=== PATIENT | female | born 1945 | race Caucasian/White ===

== ENCOUNTER 2017-10-11 05:58 | Day surgery (SDC) | payer OTHER ==
[~2017-10-11] VITALS: Ht 167.6 cm; Wt 62.0 kg
[2017-10-11] VITALS (12 sets, daily range): BP systolic 112–140; BP diastolic 63–75; PULSE 58–73; RESP 16–18; TEMP 97.2–97.9; O2SAT 96–98
[2017-10-11] MEDS ORDERED: MUPIROCIN 2% OINT 1 APPLIC/GM SYR NASAL SCH (06:30)
[2017-10-11] MEDS ORDERED: NS 1000 ML IV SCH (06:30)
[2017-10-11] MEDS ORDERED: ATOR40TA16 PO (06:39)
[2017-10-11] MEDS ORDERED: ASPI-516 CHEW (06:39)
[2017-10-11] MEDS ORDERED: LEVOTAB PO (06:39)
[2017-10-11] MEDS ORDERED: CARV25TA (06:39)
[2017-10-11] MEDS ORDERED: POTA10CA PO (06:39)
[2017-10-11] MEDS ORDERED: BRIL90TA PO (06:39)
[2017-10-11] MEDS ORDERED: RANI150T PO (06:39)
[2017-10-11] MEDS ORDERED: FURO20TA PO (06:39)
[2017-10-11] MEDS ORDERED: POVIDONE IODINE 5% (ANTISEPSIS KIT) 4 APPLICATIONS EACH NARE SCH (06:45)
[2017-10-11] MEDS ORDERED: ceFAZolin 2 GM PREMIX 50 ML IV SCH (06:45)
[2017-10-11] MEDS ORDERED: CHLORHEXIDINE GLUCONATE 2 % 1 PACK (2 CLOTHS) TOPICAL PRN (06:45)
[2017-10-11] MEDS ORDERED: CHLORHEXIDINE GLUCONATE 2 % 1 PACK (2 CLOTHS) TOPICAL SCH (06:45)
[2017-10-11] MEDS ORDERED: VANCOMYCIN 1000 MG/NS 250 ML IV SCH ×2 (06:45)
[2017-10-11] MEDS ORDERED: LORazepam 1 MG TAB SL SCH (06:45)
[2017-10-11] MEDS ORDERED: POVIDONE IODINE 5% (ANTISEPSIS KIT) 4 APPLICATIONS EACH NARE PRN (06:45)
[2017-10-11] MEDS ORDERED: LACTATED RINGER'S 1000 ML IV PRN (06:45)
[2017-10-11 06:56] LABS: AUTOMATED NEUTROPHIL # 3.5 TH/MM3 (1.8-7.7); BASOPHIL # 0.1 TH/MM3 (0-0.2); BASOPHIL % 0.7 % (0.0-2.0); EOSINOPHIL # 0.4 TH/MM3 (0-0.4); HEMATOCRIT 38.5 % (35.0-46.0); HEMOGLOBIN 12.9 GM/DL (11.6-15.3); LYMPH % 35.3 % (9.0-44.0); LYMPHOCYTE # 2.5 TH/MM3 (1.0-4.8); MEAN CELL VOLUME 86.2 FL (80.0-100.0); MEAN CORPUSCULAR HEMOGLOBIN 28.8 PG (27.0-34.0); MEAN CORPUSCULAR HGB CONC 33.4 % (32.0-36.0); MEAN PLATELET VOLUME 7.4 FL (7.0-11.0); MONO % 10.3 % (0.0-8.0); MONOCYTE # 0.7 TH/MM3 (0-0.9); NEUT % 48.7 % (16.0-70.0); PLATELET COUNT 271 TH/MM3 (150-450); RED BLOOD COUNT 4.46 MIL/MM3 (4.00-5.30); RED CELL DISTRIBUTION WIDTH 16.7 % (11.6-17.2); WHITE BLOOD COUNT 7.1 TH/MM3 (4.0-11.0)
[2017-10-11 07:07] LABS: PROTHROMBIN TIME - PATIENT 10.5 SEC (9.8-11.6)
[2017-10-11 07:14] LABS: BICARBONATE 28.1 MEQ/L (21.0-32.0); CALCIUM 9.3 MG/DL (8.5-10.1); CREATININE 0.85 MG/DL (0.50-1.00)
[2017-10-11] MEDS ORDERED: HEPARIN-NS/PF FLUSH BAG 1,000 ML IV FLUSH ONE (07:23)
[2017-10-11] MEDS ORDERED: VANCOMYCIN 500 MG VIAL ONE (07:27)
[2017-10-11] MEDS ORDERED: LIDOCAINE HCL 2% 50 ML VIAL ONE (07:27)
[2017-10-11] MEDS ORDERED: LIDOCAINE HCL 1% PF 30 ML VIAL ONE (07:27)
--- NOTE | 2017-10-11 08:08 | CATHPROC ---
[facility] HIS Report Study Information Study Number Admission Scheduled Start Study Start [id number] Oct 11 2017 5:58AM 10/11/2017 Oct 11 2017 6:37AM [place] [facility] Cardiac Pacer/ICD Admit Source Facility Department Other [facility] - [employer] Physician and Clinical Staff Initial Julian Garnica Lever Operator Dayna Vuong,RT(R) TECH2 Other Anesthesia, CHILDREN LIBRARIAN Recorder Aline Parekh BSN Scrub Yesi Sanchez RCIS Equipment Time Certified Ophthalmic Medical Technician Description Size Mfg Part Number Used/Scraped [id number] 07:31 MEDLINE INDUSTRIES PACK, CCL CUSTOM * Used *[id number] 07:31 MEDLINE PACER LOREDO, LIMB * 2530 *[id number] Used [id number] 07:31 [employer] BLANKET,WARM AIR CCL * Used *[id number] 07:40 [employer] MEDICAL CATHETER, JSN, QUAD FR 5 Used *[id number] 07:40 [employer] [place] MEDICAL CATHETER, JSN, QUAD FR 5 Used *[id number] 07:40 [employer] [place] MEDICAL CATHETER, JSN, QUAD FR 5 Used *[id number] 07:58 [employer] [place] MEDICAL CATHETER, JSN, QUAD FR 5 Used *[id number] 07:40 [employer] [place] MEDICAL SHEATH, EPS, FR5 FAST CATH FR 5 Used *[id number] [id number] 07:40 [employer] [place] MEDICAL SHEATH, EPS, FR5 FAST CATH FR 5 Used *[id number] [id number] 07:40 [employer] [place] MEDICAL SHEATH, EPS, FR5 FAST CATH FR 5 Used *[id number] 168876 07:40 [facility] MEDICAL SHEATH, EPS, FR6 FAST CATH FR 6 Used *[id number] History: Risk Factors Hypertension Previous [place] Previous Heart Failure Yes Yes Yes Prior PCI Prior PCIDate Prior CABG Yes 08/10/2017 No Cerebrovascular On Dialysis Disease No Yes Labs Hgb (g/dl) Hct (%) WBC (l/cumm) Platelets (thousands) 11.60-17.00 35.00-51.00 4.00-11.00 150.00-450.00 12.9 38.5 7.1 271 Glucose (mg/dl) BUN (mg/dl) 74.00-106.00 7.00-18.00 82 27 INR (PTT:PT) 0.90-1.10 1 CPK-MB (ng/ML) 0.50-3.60 Not Drawn Medication Medication Total Dose (Bolus/Oral) Medication Total Dosage/Unit 1% XYLOCAINE 20 mL Medications (Bolus/Oral) Medication Time Given Dosage/Unit Administered By Reason 1% XYLOCAINE 10/11/2017 7:49:38 AM 20 mL Julian Moran 20 mL 1% XYLOCAINE given in lab by Julian Moran in Right Groin via Subcutaneous. Ordered by Juanito Moran. Medication (Drip) Medication Time Given Dosage/Unit Concentration/Unit Diluent (ml) Solution ANCEF 10/11/2017 7:23:43 AM 2 g 2 g ANCEF given in lab by Anesthesia, CHILDREN LIBRARIAN in Left Forearm via Peripheral IV. Ordered by Franky Moran yMelba IV Solutions 10/11/2017 7:21:36 AM 50 mL (IV) NaCl .9 Patient arrived on IV Solutions via Peripheral IV. Pump/Drip Flow using NaCl .9. Ordered by Buck Moran. VANCOMYCIN DRIP 10/11/2017 7:23:24 AM 1 g 1 g VANCOMYCIN DRIP given in lab by Anesthesia, CHILDREN LIBRARIAN in Right Antecubital via Peripheral IV. Ordered by Julian Moran. Initial Case Assessment Cardiovascular HR Rhythm NIBP Chest Pain 80 bbb 126/67 0 Edema Present Skin color Skin None Normal Warm Dry Circulatory - Right Pulses Dorsalis Pedis Femoral 2 2 Scale (0,1,2,3,4,d) Circulatory - Left Pulses Dorsalis Pedis Femoral 2 2 Scale (0,1,2,3,4,d) Neurological State Oriented to time-place- Alert Moves all extremities person Respiration - General Respiration Rate SpO2 (%) O2 (lpm) (B/min) 16 100 2 Chronological Log Time Study Chronological Log 7:10:10 Patient arrived via Bed. 7:11:07 Patient Name, D.O.B, / Armband Verified By R.N. 7:11:11 Consent signed by the physician and the patient and verified by the [employer] staff. 7:11:41 Presedation assessment performed by [employer] RN. 7:11:48 Patient has been NPO for More than 6Hrs. 7:11:53 Skin Breakdown- none per patient 7:12:04 Patient Warmer Placed on the Table. 7:12:07 Disposable Defibrillator Pads Placed On Patient. 7:12:11 Lisa Prominences Protected 7:15:20 A # 20 IV was noted in the Forearm (left). Grade = 0 7:15:37 A # 20 IV was noted in the Antecubital (right). Grade = 0 7:16:51 History and physical on the chart or being dictated. 7:21:36 Patient arrived on IV Solutions via Peripheral IV. Pump/Drip Flow using NaCl .9. Ordered by Julian Moran. 1 g VANCOMYCIN DRIP given in lab by Anesthesia, CHILDREN LIBRARIAN in Right Antecubital via Peripheral IV. Or dered by Luisa, 7:23:24 Julian. 7:23:43 2 g ANCEF given in lab by Anesthesia, CHILDREN LIBRARIAN in Left Forearm via Peripheral IV. Ordered by Julian Mcdowell. 7:24:41 Table restraints applied according to hospital policy 7:27:15 Anesthesia at bedside. Assumes care of patient. See anesthesia flowsheet for Q5min vitals 7:31:49 Bilateral groins prepped with 2% chlorhexidine, and draped after a 3 minute waiting time. Assessment: Initial Case, HR=80 BPM, Rhythm=bbb, CXBZ=318/67 mmhg, Chest Pain=0, Edema=None, Color=Normal, Skin = Warm, Dry Right Pulses: Estuardo Ped=2, Femoral=2 7:33:55 Left Pulses: Estuardo Ped=2, Femoral=2 Neurological: State=Alert, Ox3, SIMON Respiration: Resp=16 B/min, EcI9=934 %, O2=2 lpm 7:33:58 MD paged 7:45:06 MD arrived. Time Out. Correct patient, procedure, procedure equipment, site and side verified with physicia n present. Time 7:48:37 concurred by MD, individual staff and CHILDREN LIBRARIAN. Time Out #2 - Consents verified, patient in correct position, all results are labled and displa yed, safety precautions 7:48:38 taken, antibiotics administered. Time out concurred by MD, individual staff and CHILDREN LIBRARIAN in procedu re 7:48:40 Case Start 7:49:38 20 mL 1% XYLOCAINE given in lab by Julian Moran in Right Groin via Subcutaneous. Ordered b Julian Granados. 7:51:27 Vascular access was obtained in the Fem Vein (right). 7:51:32 Vascular access was obtained in the Fem Vein (right). 7:51:32 Vascular access was obtained in the Fem Vein (right). 7:51:49 A SHEATH, EPS, FR5 FAST CATH FR 5 was advanced into the Fem Vein (right) using the Percutan eous technique. 7:52:00 A SHEATH, EPS, FR5 FAST CATH FR 5 was advanced into the Fem Vein (right) using the Percutan eous technique. 7:52:03 A SHEATH, EPS, FR5 FAST CATH FR 5 was advanced into the Fem Vein (right) using the Percutan eous technique. 7:52:05 Vascular access was obtained in the Fem Vein (right). 7:52:09 A SHEATH, EPS, FR6 FAST CATH FR 6 was advanced into the Fem Vein (right) using the Percutan eous technique. 7:52:58 Reference ECG taken A CATHETER, JSN, QUAD FR 5 was advanced vis Fem Vein (right) and placed in the HRA. Placement w as visually 7:53:40 confirmed under fluoroscopy. A CATHETER, JSN, QUAD FR 5 was advanced vis Fem Vein (right) and placed in the HIS. Placement w as visually 7:55:13 confirmed under fluoroscopy. A CATHETER, JSN, QUAD FR 5 was advanced vis Fem Vein (right) and placed in the RVA. Placement w as visually 7:56:25 confirmed under fluoroscopy. A CATHETER, JSN, QUAD FR 5 was advanced vis Fem Vein (right) and placed in the CS. Placement wa s visually 7:57:30 confirmed under fluoroscopy. 7:58:14 EP study in progress 8:06:15 EP study complete 8:06:33 EP catheters removed; sheaths left in place at this time 8:07:02 EP Procedure was performed. 8:07:37 Initial procedure has been completed. Beginning additional procedure. 8:07:47 NOTE: This patient is undergoing an additional procedure while still in the Cardiac Cath La b. End Study - Contrast Media Used In Study Contrast Total Opened (mL) Total Used (mL) Total Wasted (mL) Omnipaque 0 0 0 End Study - Radiation Exposure Fluoro Time (minutes) 2.1 End Study - Patient Disposition Complications No
--- NOTE | 2017-10-11 08:57 | CATHPROC ---
[employer] HIS Report Study Information Study Number Admission Scheduled Start Study Start [id number] Oct 11 2017 5:58AM 10/11/2017 Oct 11 2017 8:09AM [place] [facility] Electrophysiology Study Admit Source Facility Department Other [facility] - Water Resource Engineering Specialist Physician and Clinical Staff Initial Julian Garnica Oyster Grower Dayna Vuong,RT(R) TECH2 Other Anesthesia, AIRLINE HOSTESS Recorder Aline Parekh ,FAUSTON Scrub Yesi Sanchez,FAROOQ Procedures Performed Procedure Lead Insertion Equipment Time Commercial Lines Account Executive Description Size Mfg Part Number Used/Scraped DERMABOND, ADHESIVE SKIN [id number] 08:10 CORDIS/PACER * Used GLUE MINI *[id number] 08:10 MEDLINE INDUSTRIES SUTURE, STRIP PLUS 1/2" * Used *[id number] 08:10 MEDLINE PACER LOREDO, LIMB * 2530 *[id number] Used [id number] 08:10 [employer] PACER PACK, PACER CUSTOM * Used *[id number] 08:22 [employer] PACER SAFE SHEATH, FR9, 13CM FR 9 [id number] Used 08:23 Needle Sponge Count 2 2 Used 08:24 Needle Sponge Count 2 22 Used 08:24 Needle Sponge Count 20 200 Used SUTURE, 0 ETHIBOND [CT1] (CX21D), 8pk SUTURE, 2-0 VICRYL [CT1] ([id number]) SUTURE, 2-0 VICRYL [CT1] (ZZV124Z) [id number] 08:10 [place] [facility] BLANKET,WARM AIR CCL * Used *[id number] [facility] PAD, ELECTROSURGICAL 08:10 * [id number] *[id number] Used SURGICAL GROUNDING ORANGE 08:41 VITATRON MEDTRONIC DEFIBRILLATOR, VISIA AF MRI VR VVEVVIR [id number] Used LEAD, SPRINT QUATTRO SECURE [id number] 08:36 VITATRON MEDTRONIC 62CM Used S 62CM *[id number] 08:[address] KARLA. / * Used *01100 Equipment Model, Serial, Lot Number and Expiration Data Description Model Number Serial Number Lot Number Expiration Date DEFIBRILLATOR, VISIA AF MRI VR [id number] 01-09-2019 LEAD, SPRINT QUATTRO SECURE S 6935m-62cm [id number] 08-02-2019 62CM History: Allergies Allergy Reaction No Known Allergies Labs Hgb (g/dl) Hct (%) WBC (l/cumm) Platelets (thousands) 11.60-17.00 35.00-51.00 4.00-11.00 150.00-450.00 12.9 38.5 7.1 271 Glucose (mg/dl) BUN (mg/dl) Creatinine (mg/dl) BUN:Creatinine (1:x) 74.00-106.00 7.00-18.00 0.50-1.30 10.00-20.00 82 27 0.8 33.8 Na (meq/l) K (meq/l) 136.00-145.00 3.50-5.10 136 3.8 INR (PTT:PT) 0.90-1.10 1 CPK-MB (ng/ML) 0.50-3.60 Not Drawn Medication Medication Total Dose (Bolus/Oral) Medication Total Dosage/Unit 2% XYLOCAINE 10 mL Medications (Bolus/Oral) Medication Time Given Dosage/Unit Administered By Reason 2% XYLOCAINE 10/11/2017 8:32:08 AM 10 mL Julian Moran 10 mL 2% XYLOCAINE given in lab by Julian Moran in Left chest via Subcutaneous. Ordered by Buck Moran. Chronological Log Time Study Chronological Log 8:10:14 NOTE: This patient is undergoing an additional procedure while still in the Cardiac Cath La b. 8:10:17 Initial procedure has been completed. Beginning additional procedure. 8:20:10 Left Upper Chest Prepped Times Two with three min dry time 8:22:25 Anesthesia remains at bedside with care of patient, see anesthesia flowsheet for Q5min lyssa ls 8:23:03 Bovie ground pad applied to: right thigh First Sponge And Instrument Count Done by Yesi Sanchez RCIS. 8:23:11 Hypo's: 2, Sponges: 20, Bovie/scratch: 2 Sutures: 10, Blades: 1, Instruments: 26, Syveck Patches: 0 8:23:46 2% CHLORHEXIDINE GLUCONATE WASH AND NASAL SWIPE DONE PRIOR TO PROCEDURE. 8:31:54 Reference ECG taken 8:32:02 Case Start 8:32:08 10 mL 2% XYLOCAINE given in lab by Julian Moran in Left chest via Subcutaneous. Ordered by Julian Moran. 8:33:35 Vascular access was obtained in the Subclav. Vein (Lft. 8:34:33 Surgical Incision Made. 8:35:03 A SAFE SHEATH, FR9, 13CM FR 9 was advanced into the Subclav. Vein (Lft using the Percutaneo us technique. 8:35:35 A pocket was created at the L Upper Chest. 8:35:51 A LEAD, SPRINT QUATTRO SECURE S 62CM 62CM was inserted and positioned in the RV. 8:38:03 Lead placement verified under fluoroscopy 8:39:26 The RV lead impedance and threshold being tested. 8:39:36 The RV lead was sutured to the fascia. 8:42:22 Pocket flushed with antibiotic solution 8:42:44 A DEFIBRILLATOR, VISIA AF MRI VR VVEVVIR was connected and placed in the pocket. 8:45:12 The pocket is being closed. Second Sponge And Instrument Count Done by Yesi Snachez RCIS. 8:45:32 Hypo's: 2, Sponges: 20, Bovie/scratch: 2 Sutures: 10, Blades: 1, Instruments: 26, Syveck Patches: 0 8:48:35 The pocket was closed. 8:48:41 Implant Procedure was performed. 8:48:45 A ICD Implant . (Single) 8:48:53 Bedside Report will be given. Final Sponge And Instrument Count Done by Yesi Sanchez RCIS. 8:49:43 Hypo's: 2, Sponges: 20, Bovie/scratch: 2 Sutures: 10, Blades: 1, Instruments: ~INSTRU~, Syveck Patches: 0 8:50:43 Case End 8:51:33 No case complications noted. 8:51:37 Cine recording checked. 8:51:50 Implantable Device card placed in patient's chart. 8:54:04 Steri-strips and a sterile dressing applied to site. 8:59:10 A sling was placed on the affected arm. 9:02:54 Defibrillator and ground pads removed. Skin intact. 9:05:40 Patient moved to stretcher End Study - Contrast Media Used In Study Contrast Total Opened (mL) Total Used (mL) Total Wasted (mL) Omnipaque 0 0 0 End Study - Maximum Contrast Load Max Contrast Load (mL) 353.7 End Study - Radiation Exposure Fluoro Time (minutes) 1.4 End Study - Patient Disposition Complications Transferred To Interventional Outcome No Water Resource Engineering Specialist Holding successful
--- NOTE | 2017-10-11 08:58 | PD.CARD ---
SINGLE CHAMBER DEFIB IMPLANT PROCEDURE DATE: Oct 11, 2017 NYHA Classification: Class II (Mild) Prevention: Primary Single Chamber Defib Implant PROCEDURE: Single chamber defibrillator implantation and device testing. INDICATIONS: Ms. Reyes is a 71 -year-old female with hx of coronary artery disease , congestive heart failure, ejection fraction 20% refers for defibrillator implantation for sudden primary prevention. Patient onn optimal medical management for over 3 months. The risks, the nature and the benefit of the procedure are clearly stated to her . Risks include pneumothorax, cardiac perforation, stroke and even . She understood and agreed to proceed. PROCEDURE: As written, informed consent was obtained prior to the electrophysiology study, the patient was kept on the table where she was prepped and draped in the sterile fashion. Conscious sedation was initiated and maintained throughout the procedure by anesthesiologist. Once sedation was verified, the left infraclavicular area was anesthetized with 2% Xylocaine. Using modified Seldinger technique, the left subclavian vein was cannulated on one occasion and one guide wire was advanced. Then, using #11 blade scalpel, a 3-cm incision was made two fingerbreadths below left clavicle. This incision was then taken down to the deep fascial layer using Bovie cautery and blunt dissection. Into the inferomedial direction, a device pocket was dissected, then the wire was dissected into the pocket. A 2-0 Vicryl suture was placed around the wires to prevent bleeding. At this point, over the wire, the 9- Kazakh dilator and introducer was advanced. As dilator and wire were removed, an active fixation right ventricular pacing, sensing and defibrillatory lead was advanced. After adequate pacing and sensing thresholds were obtained, the lead was secured in the pocket with #2 Ethibond suture. At that point, the pocket was copiously irrigated with antibiotic solution. The leads were connected to the generator and placed into the pocket. I did proceed with wound closure. The deep fascial layer was approximated with 2-0 Vicryl suture in a continuous fashion. The subcutaneous layer was approximated with 2-0 Vicryl suture in a continuous fashion. The subcuticular layer was approximated with 2-0 Vicryl suture in a continuous fashion. Dermabond adhesive was applied to the wound, followed by a sterile pressure dressing. There was no complication. The patient tolerated procedure. Blood loss minimal. 1. Implanted Hardware: The implanted defibrillator generator is a Medtronic, model number [id number], serial number [id number]. The right ventricular pacing, sensing and defibrillatory lead is a Medtronic model number 6935M-62, serial number [id number]. 2. Thresholds: The right ventricular pacing threshold in the bipolar mode was 1.0volts at 0.4 milliseconds, lead impedance 532 ohms and R-wave at 12.9 mV. The right ventricular defibrillatory threshold was not evaluated because patient SBP was less than 80. 3. Settings: The device set in VVI40. defibrillatory portion for two zones, one zone for ventricular tachycardia between 170 and 250 beats per minute. Initial therapy consists of one burst of ATP, one ramp, 81%, 10 pulse, 10 millisecond decremental, followed by 20, then 25 and all subsequent shocks at 35 joules defibrillatory shock, the second zone for ventricular fibrillation above 250 beats per minute, first therapy at 25 and all subsequent shocks at 35 joules defibrillatory shock. CONCLUSIONS: Successful defibrillator implantation. COMMENT AND RECOMMENDATIONS: The patient will be transferred to the telemetry unit, will be observed and when stable can be discharged home. Julian Moran MD Oct 11, 2017 08:58
[2017-10-11] MEDS ORDERED: MIDAZOLAM HCL 2 MG/2 ML VIAL ONE (08:59)
[2017-10-11] MEDS ORDERED: DO NOT ADM ANY ANTICOAGULANT DRUGS PRN ×2 (09:08→11:30)
[2017-10-11] MEDS ORDERED: MORPHINE SULFATE 4 MG/ML INJ ONE (10:04)
[2017-10-11] MEDS ORDERED: oxyCODONE/ACETAMINOPHEN 5 MG/325 MG TAB PO PRN (10:30)
[2017-10-11] MEDS: oxyCODONE/ACETAMINOPHEN 5 MG/325 MG TAB PO PRN ×3 (11:04→21:43)
--- NOTE | 2017-10-11 11:37 | MA ---
cc: Julian Moran MD, Kevin MD 10/11/2017 INDICATIONS: Mrs. Reyes is a 71-year-old female with a history of coronary artery disease, previous myocardial infarction, ejection fraction around 20%-25% who was referred for electrophysiology study and device insertion. The risks, the nature and the benefits of the procedure were clearly stated to her. Risks include pneumothorax, cardiac perforation, stroke, need for open heart surgery and even . Patient understands and agreed to proceed. PROCEDURE NOTE: After written informed consent was obtained, the patient was brought to the EP lab where she was prepped and draped in the usual sterile fashion. Conscious sedation was initiated and maintained throughout the procedure by anesthesiologist. Once sedation verified, the right inguinal area was anesthetized with 2% Xylocaine. Using modified Seldinger technique, the right femoral vein was cannulated on four occasions, four guidewires were advanced over the wire. Three 5 and a 6 [place] Hemaquet wires were advanced. Then under fluoroscopic guidance through the 5 and 6 R[place]an Hemaquets, four 5 Rwandan Elli curved quadripolar electrophysiology catheters were advanced and positioned along the His, upper right atrium, coronary sinus and right ventricular apex. Basic interval was measured. HV was prolonged around 74 milliseconds. Then atrial pacing protocol was performed. Atrial pacing protocol consists of incremental atrial pacing as well as programmed stimulation with one drive train cycle length and up to one extra stimulus delivered. No tachyarrhythmia was induced. Then ventricular pacing protocol was performed. There was no VA conduction. During ventricular pacing protocol, suddenly blood pressure dropped in the 70s despite medication. I decided to discontinue the pacing protocol. All catheters and Hemaquets were removed. The patient is going to be kept on the table. A single chamber defibrillator will be implanted for sudden primary prevention. No incident to report. Patient tolerated the procedure. Blood loss minimal. IMPRESSION: 1. Electrocardiogram: At baseline, the patient was in sinus, post-procedure electrocardiogram was unchanged. 2. Basic cycle length was 940 milliseconds, AH at 70 and HV at 74 milliseconds. 3. Atrial Pacing Protocol: Wenckebach of the node was 310 milliseconds. ERP of the node was 600-200 milliseconds. No tachyarrhythmia was induced. 4. Ventricular Pacing Protocol: There was no VA conduction, no tachyarrhythmia was induced. CONCLUSIONS: Negative electrophysiology study for ventricular tachyarrhythmia. COMMENT AND RECOMMENDATION: The patient is going to be kept on the table. ____ class II, ejection fraction 25%. There is slightly wide QRS. There is no need at this point for a Bi-V pacing. A single chamber defibrillator will be implanted for sudden primary prevention. Julian Moran MD HS/DL/ , 08:13 AM , 10:30 AM
[2017-10-11] MEDS ORDERED: LIDOCAINE HCL 1% PF 5 ML SYRINGE OTHER ONE (12:00)
[2017-10-11] MEDS ORDERED: ePHEDrine/NS 25 MG/5 ML SYRINGE IV ONE (12:00)
[2017-10-11] MEDS ORDERED: PROPOFOL 200 MG/20 ML AMP IV ONE (12:00)
[2017-10-11] MEDS ORDERED: SODIUM CHLORIDE 0.9% FLUSH 10 ML FLUSH IV FLUSH PRN (12:00)
--- NOTE | 2017-10-11 12:10 | RADRPT ---
EXAM DATE/TIME: 10/11/2017 10:37 [facility] COMPARISON: CHEST SINGLE AP, July 23, 2017, 1:29. INDICATIONS : Post defibrillator placement. MEDICAL HISTORY : Hypertension. SURGICAL HISTORY : None. ENCOUNTER: Initial ACUITY: 1 day PAIN SCORE: 10/10 LOCATION: Bilateral chest FINDINGS: No CV device has been placed. Left lung remains well expanded without pneumothorax. Heart is moderately enlarged. Lungs demonstrates no chronic changes but are otherwise clear. Some mild parenchymal scarring is seen in both bases. CONCLUSION: Status post ICD placement. No evidence of acute cardiopulmonary process or pneumothorax. Diaz Cao MD on October 11, 2017 at 12:07 Board Certified Radiologist. This report was verified electronically.
[2017-10-11] MEDS: ONDANSETRON HCL 4 MG/2 ML VIAL IV PUSH PRN ×2 (15:45→21:48)
[2017-10-11] MEDS: ceFAZolin 2 GM PREMIX 50 ML IV SCH (17:05)
[2017-10-11] MEDS ORDERED: TEMAZEPAM 15 MG CAP PO PRN (21:00)
[2017-10-11] MEDS: CARVEDILOL 12.5 MG TAB PO SCH (21:00)
[2017-10-11] MEDS ORDERED: ATORVASTATIN 40 MG TAB PO SCH (21:00)
[2017-10-11] MEDS: SODIUM CHLORIDE 0.9% FLUSH 10 ML FLUSH IV FLUSH SCH (21:40)
[2017-10-11] MEDS: FUROSEMIDE 20 MG TAB PO SCH (21:42)
[2017-10-11] MEDS: TICAGRELOR 90 MG TAB PO SCH (21:43)
[2017-10-11] MEDS: FAMOTIDINE 20 MG TAB PO SCH (21:43)
--- NOTE | 2017-10-11 21:59 | EKG ---
Date Performed: 10/11/2017 Time Performed: 06:53:32 PTAGE: 71 years EKG: Sinus rhythm . Left axis deviation Left bundle branch block Abnormal ECG NO PREVIOUS TRACING DOCTOR: Arsen Chowdhury Interpretating Date/Time 10/11/2017 21:58:29
[2017-10-12] VITALS (11 sets, daily range): BP systolic 111–125; BP diastolic 58–71; PULSE 59–79; RESP 16–18; TEMP 97.9–98.1; O2SAT 97
[2017-10-12] MEDS: ceFAZolin 2 GM PREMIX 50 ML IV SCH ×2 (00:49→08:41)
[2017-10-12] MEDS: oxyCODONE/ACETAMINOPHEN 5 MG/325 MG TAB PO PRN ×2 (04:31→08:40)
[2017-10-12] MEDS ORDERED: CEPH-460 PO (08:08)
--- NOTE | 2017-10-12 08:22 | PD.CARD.PN ---
Subjective Subjective Remarks Feels ok Objective Medications Current Medications Medications (Trade) Dose Ordered Sig/Sunni Route Start Time Stop Time Status Last Admin Sodium Chloride 1,000 ml @ 30 mls/hr Q24H IV 10/11/17 06:30 Cefazolin Sodium/ Dextrose 50 ml @ 100 mls/hr MONUMENTAL STONEMASON IV 10/11/17 06:45 10/14/17 06:44 10/11/17 07:23 Vancomycin HCl 1000 mg/Sodium Chloride 250 ml @ 250 mls/hr MONUMENTAL STONEMASON IV 10/11/17 06:45 10/14/17 06:44 10/11/17 07:23 (Ativan) 1 mg MONUMENTAL STONEMASON SL 10/11/17 06:45 10/14/17 06:44 (Betadine 5% Antisepsis Kit) 2 applic MONUMENTAL STONEMASON EACH NARE 10/11/17 06:45 10/14/17 06:44 10/11/17 06:44 (Bactroban Nasal 2% Oint) 1 applic MONUMENTAL STONEMASON NASAL 10/11/17 06:30 10/14/17 06:29 (Chlorhexidine 2% Cloth) 3 pack MONUMENTAL STONEMASON TOPICAL 10/11/17 06:45 10/14/17 06:44 10/11/17 06:44 Lactated Ringer's 1,000 ml @ 30 mls/hr Q24H PRN IV 10/11/17 06:45 10/14/17 06:44 (Betadine 5% Antisepsis Kit) 1 applic MONUMENTAL STONEMASON PRN EACH NARE 10/11/17 06:45 10/14/17 06:44 (Chlorhexidine 2% Cloth) 3 pack MONUMENTAL STONEMASON PRN TOPICAL 10/11/17 06:45 10/14/17 06:44 Cefazolin Sodium/ Dextrose 50 ml @ 100 mls/hr Q8H IV 10/11/17 17:00 10/12/17 09:29 10/12/17 00:49 (Restoril) 15 mg HS PRN PO 10/11/17 21:00 (Zofran Inj) 4 mg Q4H PRN IV PUSH 10/11/17 12:00 10/11/17 21:48 (NS Flush) 2 ml BID IV FLUSH 10/11/17 21:00 10/11/17 21:40 (NS Flush) 2 ml UNSCH PRN IV FLUSH 10/11/17 12:00 (Percocet 5-325 Mg) 1 tab Q4H PRN PO 10/11/17 10:30 (Percocet 5-325 Mg) 2 tab Q4H PRN PO 10/11/17 10:30 10/12/17 04:31 (Aspirin Chew) 81 mg DAILY CHEW 10/12/17 09:00 (Lipitor) 40 mg HS PO 10/11/17 21:00 10/11/17 21:43 (Coreg) 25 mg BID PO 10/11/17 21:00 (Lasix) 20 mg BID PO 10/11/17 21:00 10/11/17 21:42 (KCl) 10 meq DAILY PO 10/12/17 09:00 (Brilinta) 90 mg BID PO 10/11/17 21:00 10/11/17 21:43 Patient Own Medication PT OWN MED: Levocetirizine 5 MG Tab... DAILY PO 10/12/17 09:00 Future Hold (Pepcid) 20 mg BID PO 10/11/17 21:00 10/11/17 21:43 Miscellaneous Information ALL NURSING DEPARTME... UNSCH PRN .XX 10/11/17 09:08 10/12/17 09:07 Miscellaneous Information ALL NURSING DEPARTME... UNSCH PRN .XX 10/11/17 11:30 10/12/17 11:29 Vital Signs / I&O Vital Signs Date Time Temp Pulse Resp B/P (MAP) Pulse Ox O2 Delivery O2 Flow Rate FiO2 10/12/17 08:00 79 10/12/17 07:32 98.1 68 18 124/71 (88) 97 10/12/17 07:27 97 Room Air 10/12/17 07:00 63 10/12/17 06:00 65 10/12/17 05:22 16 10/12/17 05:00 68 10/12/17 04:00 70 10/12/17 04:00 98.1 65 16 125/71 (89) 97 10/12/17 04:00 97 Room Air 10/12/17 03:00 63 10/12/17 02:00 65 10/12/17 01:00 59 10/12/17 00:00 97 Room Air 10/12/17 00:00 66 10/12/17 00:00 97.9 61 16 111/58 (75) 97 10/11/17 23:00 63 10/11/17 22:00 58 10/11/17 21:00 64 10/11/17 20:00 64 10/11/17 19:00 97 Room Air 10/11/17 19:00 97.5 65 16 112/63 (79) 97 10/11/17 19:00 68 10/11/17 18:00 65 10/11/17 17:00 68 10/11/17 16:00 65 10/11/17 15:32 97.2 70 16 140/72 (94) 98 10/11/17 15:00 61 10/11/17 14:06 97.9 72 16 127/73 (91) 96 10/11/17 09:20 100 Room Air I/O 10/11/17 10/11/17 10/11/17 10/12/17 10/12/17 10/12/17 07:00 15:00 23:00 07:00 15:00 23:00 Intake Total 840 ml 480 ml Balance 840 ml 480 ml Intake Oral 840 ml 480 ml # Voids 2 5 # Bowel Movements 0 Physical Exam GENERAL: Well-nourished, well-developed patient. SKIN: Warm and dry.Incision without swelling, erythema or drainage. HEAD: Normocephalic. EYES: No scleral icterus. No injection or drainage. NECK: Supple, trachea midline. No JVD or lymphadenopathy. CARDIOVASCULAR: Regular rate and rhythm without murmurs, gallops, or rubs. RESPIRATORY: Breath sounds equal bilaterally. No accessory muscle use. GASTROINTESTINAL: Abdomen soft, non-tender, nondistended. EXTREMITIES: No cyanosis, or edema. NEUROLOGICAL: Awake, alert, and oriented x 3. Non-focal. Imaging Last Impressions Chest X-Ray 10/11/17 0000 Signed Impressions: Service Date/Time: Wednesday, October 11, 2017 10:37 - CONCLUSION: Status post ICD placement. No evidence of acute cardiopulmonary process or pneumothorax. Diaz Cao MD Assessment and Plan Problem List: (1) Cardiomyopathy ICD Codes: I42.9 - Cardiomyopathy, unspecified Plan: EF 20%. (2) S/P ICD (internal cardiac defibrillator) procedure ICD Codes: Z95.810 - Presence of automatic (implantable) cardiac defibrillator Plan: Stable s/p ICD implantation. Device functioning appropriately. CXR negative. DC home. F/U with Dr. Moran in 2 weeks per my d/w him. Problem Qualifiers (1) Cardiomyopathy: Qualified Codes: I25.5 - Ischemic cardiomyopathy Heidy Odonnell Oct 12, 2017 08:22
[2017-10-12] MEDS: CARVEDILOL 12.5 MG TAB PO SCH (08:41)
[2017-10-12] MEDS: TICAGRELOR 90 MG TAB PO SCH (08:41)
[2017-10-12] MEDS: SODIUM CHLORIDE 0.9% FLUSH 10 ML FLUSH IV FLUSH SCH (08:41)
[2017-10-12] MEDS: FUROSEMIDE 20 MG TAB PO SCH (08:43)
[2017-10-12] MEDS: FAMOTIDINE 20 MG TAB PO SCH (08:43)
[2017-10-12] MEDS ORDERED: POTASSIUM CHLORIDE 10 MEQ CAP PO SCH (09:00)
[2017-10-12] MEDS ORDERED: LEVOCETIRIZINE 5 MG PO SCH (09:00)
[2017-10-12] MEDS ORDERED: ASPIRIN 81 MG CHEW TAB CHEW SCH (09:00)
== END 2017-10-12 09:40 | disposition home or self-care (01) ==
LOC: HDIC 05:58 → HDOC 05:58 → HCPC 13:28 → HDOC 10-12 09:40
PROVIDERS: ATTEND Internal Medicine Interventional Cardiology
DX: I11.0 Hypertensive heart disease with heart failure (principal); I50.9 Heart failure, unspecified; I44.7 Left bundle-branch block, unspecified; I42.9 Cardiomyopathy, unspecified; I25.10 Atherosclerotic heart disease of native coronary artery without angina pectoris; I25.2 Old myocardial infarction; Z01.818 Encounter for other preprocedural examination; Z01.810 Encounter for preprocedural cardiovascular examination
CPT/HCPCS: 00530; 33249; 71045; 80048; 85025; 85610; 85730; 86850; 86900; 86901; 93005; 93620; C1722; C1730; C1777; J0690; J1644; J2250; J2270; J2405; J3010; J3370; J7050